=== PATIENT | male | born 1985 | race Caucasian/White ===

== ENCOUNTER 2017-08-02 18:51 | Emergency (ER) | payer OTHER ==
[~2017-08-02] VITALS: Ht 180.3 cm; Wt 100.0 kg
[2017-08-02 19:05] VITALS: BP 130/69
--- NOTE | 2017-08-02 19:19 | NUR ---
PT TO BED 4.
--- NOTE | 2017-08-02 19:22 | NUR ---
32/M CAME IN W C/O SYNCOPE AT WORK FOR <1 MIN, PT DENIES TRAUMA/HEAD INJURY/LOC, DENIES N/V, VISUAL DISTURBANCES, REPORTS HE HAS BEEN HAVING DIZZINESS SINCE AM. PT REPORTS HE HAS BEEN HAVING INTERMITTENT LEFT FACIAL AND LEFT ARM NUMBNESS ASSOSCIATED WITH SOB X 1 MONTH. DENIES NUMBNESS/TINGLING/WEAKNESS. PT REPORTS HE HAS BEEN HAVING A LOT OF STRESS LATELY. PMH: HTN RX: LISINOPRIL. CURRENT BS 110
--- NOTE | 2017-08-02 19:36 | NUR ---
Dr. Bell evaluating patient at bedside.
[2017-08-02 20:20] LABS: BASOPHILS # (AUTO) 0.7 K/uL (0.00-0.22); EOSINOPHILS # (AUTO) 0.1 K/uL (0-0.4); HEMATOCRIT 47.2 % (36-52); HEMOGLOBIN 15.8 g/dL (12.0-18.0); LYMPHOCYTES # (AUTO) 2.1 K/uL (2.0-11.5); MEAN CORPUSCULAR HEMOGLOBIN 29 pg (27-31); MEAN CORPUSCULAR HGB CONC 33 g/dL (33-37); MEAN CORPUSCULAR VOLUME 88 fL (80-94); MONOCYTES # (AUTO) 0.8 K/uL (0.8-1.0); NEUTROPHILS # (AUTO) 6.2 K/uL (1.8-7.7); PLATELET COUNT (AUTO) 282 K/uL (140-450); RED BLOOD CELL COUNT(AUTO) 5.37 MIL/uL (4.20-6.10); RED CELL DISTRIBUTION WIDTH 11.7 % (11.6-13.7); WHITE BLOOD COUNT (AUTO) 9.9 K/uL (4.8-10.8)
[2017-08-02] MEDS: NACL 0.9% 1,000 ML IV ONE (20:20)
[2017-08-02] MEDS: LORazepam 2 MG/ML VIAL IVP ONE (20:21)
[2017-08-02] MEDS: ASPIRIN 81 MG TAB.CHEW PO ONE (20:21)
[2017-08-02 20:41] LABS: PROTHROMBIN TIME 10.1 secs (10.8-13.4)
[2017-08-02 20:54] LABS: CARBON DIOXIDE 27.8 mmol/L (21-32); CREATININE 0.7 mg/dL (0.7-1.3); POTASSIUM 3.8 mmol/L (3.5-5.1); TOTAL BILIRUBIN 0.3 mg/dL (0.0-1.0)
[2017-08-02 20:55] LABS: ALBUMIN 4.1 g/dL (3.4-5.0)
[2017-08-02 21:56] VITALS: BP 122/82
== END 2017-08-02 21:53 | disposition home or self-care (01) ==
LOC: MED 18:51
DX: F41.9 Anxiety disorder, unspecified (principal); I10 Essential (primary) hypertension
CPT/HCPCS: 36415; 71010; 80053; 84484; 85025; 85610; 85730; 93005; 96361; 96374; 99285; J2060; J7030; Q0092